=== PATIENT | female | born 1985 | race Caucasian/White ===

== ENCOUNTER 2020-02-09 14:52 | Emergency (ER) | payer OTHER, SELFPAY ==
[2020-02-09 15:20] VITALS: BP 122/72; PULSE 96; RESP 16; TEMP 36; O2SAT 100
--- NOTE | 2020-02-09 15:21 | ED.WOUNDLAC ---
HPI - Wound/Laceration General Chief Complaint: Wound/Laceration Stated Complaint: injury Time Seen by Provider: 02/09/20 15:21 Source: patient and RN notes reviewed History of Present Illness HPI narrative: Patient is a 34-year-old female that presents the urgent care with complaints of an injury to the back of the left heel. Patient states that she got a laceration yesterday. States that she was sitting on the floor standing and a coffee mug shattered on the floor. Patient states that a piece of it came up and sliced the back of her left heel. Patient is up-to-date on her tetanus shot. States that she has been cleaning and covering the wound. No other acute complaints. No acute distress noted. Patient using crutches for ambulation. Patient aware of the plan of care. Related Data Allergies Allergy/AdvReac Type Severity Reaction Status Date / Time No Known Allergies Allergy Unverified 06/15/18 10:09 Review of Systems Review of Systems: Narrative: CONSTITUTIONAL: Denies fever, chills, or sweats. EYES: Denies visual changes, redness, or discharge. ENT: Denies rhinorrhea, congestion, sore throat, or otalgia. CARDIOVASCULAR: Denies chest pain, palpitations, or edema. RESPIRATORY: Denies cough or dyspnea. GASTROINTESTINAL: Denies abdominal pain, nausea, vomiting, or diarrhea. GENITOURINARY: Denies dysuria or hematuria. SKIN: Reports of a laceration to the back of the left heel MUSCULOSKELETAL: Denies back pain, joint pain, or myalgia. NEUROLOGIC: Denies headache, numbness, or weakness. All other systems reviewed are negative, except as documented in HPI. PMFSH Comments At the time of my signature, I reviewed and agree with the nursing past medical, surgical, social, and family history. There is no relevant family history pertinent to the patient complaint. Exam Narrative: Exam Narrative: GENERAL: This is a well-nourished, well-developed patient, in no apparent distress. HEAD: normocephalic, atraumatic. EYES: PERRL. Sclera clear/white. Vision is grossly intact. EARS: External ears normal NOSE: External nose normal with no obvious nasal discharge THROAT: Mucous membranes moist NECK: Neck supple SKIN: 2 cm laceration noted to the posterior ankle NEURO: awake, alert, and oriented to person, place and time. There were no obvious focal neurologic abnormalities. EXTREMITIES: Limited range of motion to left foot due to pain, however range of motion is within normal limits, no notable defect or detachment of Achilles tendon. Positive strong pedal pulse with capillary refill less than 2 seconds. Course Vital Signs Vital signs: Vital Signs Temperature 96.8 F L 02/09/20 15:20 Pulse Rate 96 02/09/20 15:20 Respiratory Rate 16 02/09/20 15:20 Blood Pressure 122/72 02/09/20 15:20 Pulse Oximetry 100 02/09/20 15:20 Temperature 96.8 F L 02/09/20 15:20 Pulse Rate 96 02/09/20 15:20 Respiratory Rate 16 02/09/20 15:20 Blood Pressure 122/72 02/09/20 15:20 Pulse Oximetry 100 02/09/20 15:20 Reviewed Procedures Laceration Laceration 1: Site: lower extremity Side (If applicable): left (Posterior ankle, over the Achilles) Description: linear ====== Skin Level ====== ====== Subcutaneous Layer ====== ====== Muscle Layer ====== ====== Tendon Layer ====== Dressing: Wound cleansed with Betadine and normal saline. Dressing placed with Neosporin. Unable to close due to the timeframe. Patient tolerated well. MDM - Wound/Laceration MDM Narrative Medical decision making narrative: Advised the patient to keep the wound very clean and free of debris, using plain Dial soap and warm water. May leave it open to air when not at risk of being soiled. Use a clean dressing and prescription cream as directed. If you develop any signs of infection including increased redness, swelling, increased pain, fever, chills?start antibiotic regimen as prescribed. Make sure to eat and
== END 2020-02-09 15:42 | disposition home or self-care (01) ==
PROVIDERS: Emergency Provider Nurse Practitioner Family
DX: S91.312A Laceration without foreign body, left foot, initial encounter (principal); W26.8XXA Contact with other sharp object(s), not elsewhere classified, initial encounter
CPT/HCPCS: 99213; G0463

== ENCOUNTER 2024-12-08 13:58 | Emergency (ER) | payer OTHER, MEDICAID, SELFPAY ==
[2024-12-08 14:14] VITALS: BP 104/64; PULSE 84; RESP 16; TEMP 36.2; O2SAT 97
[2024-12-08 14:45] LABS: EDINFLUASCREEN Positive (Negative); EDINFLUBSCREEN Negative (Negative)
[2024-12-08 14:45] LABS: EDSTREPNEGPOS1 Negative (Negative)
--- NOTE | 2024-12-08 15:02 | ED.GENADULT ---
HPI - General Adult General Chief complaint: Upper Respiratory Infection Stated complaint: bodyaches,cough,throat hurts History of Present Illness HPI narrative: Donna Stuart is a 39 year female who presents today with complaints having URI symptoms that started 3 days ago. She mainly states that she is having body aches, fever, sore throat. Related Data Allergies Allergy/AdvReac Type Severity Reaction Status Date / Time No Known Allergies Allergy Unverified 06/15/18 10:09 Review of Systems Review of Systems: All systems reviewed & are unremarkable except as noted in HPI and below Exam Narrative: GENERAL: Well-appearing, well-nourished, and in no acute distress. HEAD: Normocephalic, atraumatic. EYES: PERRLA and EOMI. ENT: Nares clear, no rhinorrhea or epistaxis. Mucous membranes moist. Oropharynx without tonsillar hypertrophy exudate or other lesions. Bilateral TMs pearly pereira nonbulging NECK: Supple. No adenopathy or masses. No carotid bruits or JVD CHEST: Clear to auscultation. No respiratory distress. No wheezes rales or rhonchi HEART: Regular rate and rhythm. No murmur heard. Normal peripheral pulses. ABDOMEN: Soft, nontender, nondistended, normal active bowel sounds. EXTREMITIES: Normal range of motion. No edema. SKIN: Warm, dry, no rash. NEURO: No focal deficits. Alert and oriented x3. PSYCH: Normal mood and affect. Course Course Level of Care: Express Care Visit Vital Signs Vital signs: Vital Signs Temperature 36.2 C L 12/08/24 14:14 Pulse Rate 84 12/08/24 14:14 Respiratory Rate 16 12/08/24 14:14 Blood Pressure 104/64 12/08/24 14:14 Pulse Oximetry 97 12/08/24 14:14 Oxygen Delivery Room Air 12/08/24 14:14 Temperature 36.2 C L 12/08/24 14:14 Pulse Rate 84 12/08/24 14:14 Respiratory Rate 16 12/08/24 14:14 Blood Pressure 104/64 12/08/24 14:14 Pulse Oximetry 97 12/08/24 14:14 Oxygen Delivery Room Air 12/08/24 14:14 Medical Decision Making [facility] Narrative Medical decision making narrative: This 39 year old patient presents with symptoms most suggestive of viral upper respiratory tract infection. Lungs are clear bilaterally without any respiratory distress or accessory muscle use.? Positive for influenza A? patient is discharged home in stable condition with expectant management. Return precautions were provided.? ?Procedures: Pulse oximetry interpretation - not hypoxic. Review of medical records.? ? DISPOSITION: Discharged home in stable condition.? IMPRESSION:? ?Acute upper respiratory tract infection, likely viral. influenza A Medical Records Medical records reviewed: Yes I reviewed the external patient's medical records. Vital Signs Vital Signs: Vital Signs Temperature 36.2 C L 12/08/24 14:14 Pulse Rate 84 12/08/24 14:14 Respiratory Rate 16 12/08/24 14:14 Blood Pressure 104/64 12/08/24 14:14 Pulse Oximetry 97 12/08/24 14:14 Oxygen Delivery Room Air 12/08/24 14:14 Temperature 36.2 C L 12/08/24 14:14 Pulse Rate 84 12/08/24 14:14 Respiratory Rate 16 12/08/24 14:14 Blood Pressure 104/64 12/08/24 14:14 Pulse Oximetry 97 12/08/24 14:14 Oxygen Delivery Room Air 12/08/24 14:14 Vitals reviewed by me Lab Data Lab results reviewed: Yes I reviewed the patient's lab results. Labs: Lab Results 12/08/24 12/08/24 Range/Units 14:43 14:44 POC Influenza A Ag Positive (Negative) POC Influenza B Ag Negative (Negative) POC Grp A Strep Screen Negative (Negative) Discharge Plan Discharge Clinical Impression: Influenza A Patient Disposition: Home, Self-Care Condition: Stable Instructions: Antibiotic Form Additional Instructions: continue to take Tylenol Motrin for your symptoms, push hydration drinking plenty of water. Give plenty of rest follow-up with a primary care doctor in the next week to ensure your improving if develop any worsening symptoms such as chest pain, shortness of breath, difficulty breathing proceed to the ER. Patient Language: Kiswahili Prescriptions: No Action mupirocin calcium 2 % cream 1 applic TOPICAL TID Qty: 15 0RF doxycycline monohydrate 100 mg capsule 100 mg PO BID Qty: 14 0RF Follow-up/Referrals: PHYSICIAN,[employer] [Primary Care Provider] - Time of Disposition: 15:05
== END 2024-12-08 15:10 | disposition home or self-care (01) ==
PROVIDERS: Emergency Provider Nurse Practitioner Family
DX: J10.1 Influenza due to other identified influenza virus with other respiratory manifestations (principal)
CPT/HCPCS: 87804; 87880; 99212; G0463

== ENCOUNTER 2025-03-08 09:40 | Emergency (ER) | payer MEDICAID, SELFPAY ==
[2025-03-08 09:49] VITALS: BP 103/62; PULSE 68; RESP 14; TEMP 36.9; O2SAT 99
[2025-03-08 11:17] VITALS: BP 100/61; PULSE 61; RESP 20; O2SAT 100
--- NOTE | 2025-03-08 12:01 | PC.NURSE ---
Tech went to pt room to draw blood and pt was not in room and gown was on the bed
== END 2025-03-08 12:03 | disposition left against medical advice (07) ==
LOC: ANHED 11:37
PROVIDERS: Emergency Provider Physician Assistant
DX: O20.9 Hemorrhage in early pregnancy, unspecified (principal); Z3A.01 Less than 8 weeks gestation of pregnancy
CPT/HCPCS: 99199; 99284